=== PATIENT | female | born 1975 | race Caucasian/White ===

== ENCOUNTER → 2019-08-10 14:02 | Outpatient (BNVA) | payer BC, SELFPAY | PROVIDERS: Family Provider Nurse Practitioner Family; PCP Nurse Practitioner Family; Visit Provider Surgery | DX: K52.9 Noninfective gastroenteritis and colitis, unspecified (principal) | CPT/HCPCS: 87046 ==

== ENCOUNTER → 2019-08-11 16:32 | Outpatient (BNVA) | payer BC, SELFPAY | PROVIDERS: Family Provider Nurse Practitioner Family; PCP Nurse Practitioner Family; Visit Provider Surgery | DX: K52.9 Noninfective gastroenteritis and colitis, unspecified (principal); R10.13 Epigastric pain | CPT/HCPCS: 83630; 87177; 87209; 87493; 87505 ==

== ENCOUNTER 2019-08-22 09:31 | Outpatient (CLI) | payer BC, SELFPAY ==
--- NOTE | 2019-08-22 09:39 | NM_ITS ---
WS: [id number] NUCLEAR MEDICINE HIDA SCAN WITH GALLBLADDER EJECTION FRACTION HISTORY: EPIGASTRIC PAIN COMPARISON: Gallbladder ultrasound 07/07/2019 TECHNIQUE: The patient was intravenously injected with 7.5 mCi of TC99m Mebrofenin. Immediate imaging over the right upper quadrant was followed by 5 minute image and additional images for a total of 60 minutes. Normal uptake of radiotracer throughout the liver. Activity identified in the gallbladder at 10 minutes and well distended by 60 minutes. Activity in the proximal small bowel was seen by 20 minutes. Good washout of the radiotracer from the liver by 60 minutes. The patient then drank 8 ounces of Ensure Plus. Ejection fraction at 75 minutes was 73%. Normal GB ej ection fraction is 35-75%. Post fatty meal symptoms: None. NM/NM hepatobiliary w phar* [id number] IMPRESSION: 1. Normal HIDA scan. 2. Normal gallbladder ejection fraction.
== END 2019-08-22 09:32 | disposition home or self-care (01) ==
PROVIDERS: Family Provider Nurse Practitioner Family; PCP Nurse Practitioner Family; Visit Provider Surgery
DX: R10.13 Epigastric pain (principal)
CPT/HCPCS: 78227; A9537

== ENCOUNTER 2019-08-30 06:21 | Day surgery (SDC) | payer BC, SELFPAY ==
[2019-08-29 11:24] VITALS: BMI 37.8
[2019-08-30] VITALS (7 sets, daily range): BP systolic 100–140; BP diastolic 59–103; PULSE 52–86; RESP 16–20; TEMP 36.2–36.6; O2SAT 93–98
--- NOTE | 2019-08-30 06:53 | PM.HPUD ---
H&P update H&P Update: DATE OF SURGERY/PROCEDURE: 08/30/19 DATE H&P PERFORMED: 08/25/19 H&P UPDATE INFORMATION: H&P completed within last 30 days and No changes to prior documentation PREOP DIAGNOSIS: Chronic cholecystitis PLANNED PROCEDURE: Operation Date: 08/30/19 07:40 Proposed Procedures p Laparoscopic [place] 76534 K82.8(Not Applicable) - Remy Moss MD Full H&P Perinent History: Medical/Surgical History: Medical History (Updated 08/25/19 @ 11:00 by Remy Moss MD) Environmental and seasonal allergies (Acute) Gastritis (Acute) PCOS (polycystic ovarian syndrome) (Acute) Vitamin D deficiency (Acute) Family History: Family History (Updated 08/04/19 @ 11:22 by Serene Craft LPN) Grandmother Diabetes Mother Cancer colon Denies family history of Anesthesia complication Bleeding disorder Social History: Social History Smoking and tobacco status: never smoked Alcohol intake: never Household members: spouse Marital status: Current occupational status: employed
[2019-08-30 07:05] LABS: OR HCG Qualitative Urine Negative (Negative)
--- NOTE | 2019-08-30 07:06 | ANES.PREANE2 ---
Pre-Anesthetic Assessment Pre-Anesthetic Assessment: Height/Weight: Height 1.63 m Weight 99.79 kg Temp Pulse Resp BP Pulse Ox 97.2 F L 86 16 140/103 98 08/30/19 06:44 08/30/19 06:44 08/30/19 06:44 08/30/19 06:44 08/30/19 06:44 Preop Diagnosis: Chronic cholecystitis Proposed Procedure: Operation Date: 08/30/19 07:40 Proposed Procedures p Laparoscopic Cholecystectomy Poss Open 15034 K82.8(Not Applicable) - Remy Moss MD Last intake: Intake Last Liquid Date 08/30/19 Last Liquid Time 20:30 Last Solid Date 08/29/19 Last Solid Time 20:30 Exam: Pre-Anes Outpt Exam: alert, oriented x 3, clear to auscultation bilaterally and regular rate & rhythm Airway: Submandibular: WNL Cervical ROM: WNL MP: 1 GI: GI: GERD Comments: chronic cholecystitis Metabolic: Metabolic: Morbid obesity Anesthetic Plan: ASA status: III Anesthesia: General PFS Anesthesia PFSH: Social History Smoking and tobacco status: never smoked Alcohol intake: never Household members: spouse Marital status: Current occupational status: employed Data Anesthesia Other Labs: Laboratory Results - last 48 hr 08/30/19 07:01 Urine HCG, Qual Negative Cardiac Studies: No Data to Display
[2019-08-30] MEDS: sodium chloride 0.9% 1,000 ML 30 ML IV (07:08)
[2019-08-30] MEDS: HYDROcodone-acetaminophen 5-325 mg Tablet 1 TAB PO (09:14)
--- NOTE | 2019-08-30 09:24 | P.OP_ITS ---
Operative Report Date of procedure: August 30, 2019 Pre-op Diagnosis: Chronic cholecystitis Post-op diagnosis: same Post-op Findings: Omentum adherent to the fundus and the body of the gallbladder Procedure Done: Laparoscopic cholecystectomy Pathology: Gallbladder Surgeon: Remy Moss Anesthesia: General Estimated blood loss (mL): 10 Condition: stable Disposition: PACU Procedure: The patient was taken to the operating room and was intubated under general anesthesia. After the antibiotic had been administered, the abdomen was prepped and draped in a sterile manner. Using a #15 blade, a 1 centimeter infraumbilical curvilinear incision was made and using an open Asha technique the peritoneal cavity was entered. A 10 millimeter port was placed and 15 millimeters of pneumoperitoneum was created. A 10 millimeter, 30 degrees scope was then introduced. Three 5 millimeter ports were placed in the epigastric, midclavicular and the anterior axillary line two fingerbreadths below the costal margin on the right side under the direct visualization. Ratcheted forceps were introduced into the lateral most port and was used to retract the fundus of the gallbladder cephalad and using forceps the infundibulum of the gallbladder was retracted laterally. Using electrocautery the omentum was peeled from the fundus and the body of the gallbladder. Using L-hook cautery the peritoneum overlying the Calot's triangle was opened medially and laterally until the cystic duct and the cystic artery were skeletonized. Dissection was carried along the body of the gallbladder and after ensuring critical view of safety, 4 clips applied on the cystic duct and 3 clips applied on the anterior and posterior branch of cystic artery and cut leaving, 3 clips on the remaining p ortion of the duct and 2 clips on the remaining portion of the artery. The rest of the gallbladder was dissected off the liver using L-hook cautery. There was no bleeding or bile leaking noted from the gallbladder fossa and the clips appeared to be in place. An EndoCatch bag was introduced to remove the gallbladder. All the ports were removed under direct visualization and there was no bleeding noted from the port sites. The fascia of the umbilicus was closed using [id number] 0 Vicryl sutures and the subcutaneous tissue was approximated using 3-0 Vicryl sutures. The skin at all four ports were closed using 4-0 Monocryl and Dermabond. A total of 10 millimeters of 0.5% Marcaine was infiltrated around the port sites. The patient was stable throughout the procedure.
== END 2019-08-30 10:20 | disposition home or self-care (01) ==
PROVIDERS: Family Provider Nurse Practitioner Family; PCP Nurse Practitioner Family; Visit Provider Surgery
PROC: 0FT44ZZ Resection of Gallbladder, Percutaneous Endoscopic Approach (ICD-10-PCS; CPT 47562; principal; 2019-08-30 07:40)
DX: K81.1 Chronic cholecystitis (principal); E66.01 Morbid (severe) obesity due to excess calories; Z68.37 Body mass index [BMI] 37.0-37.9, adult; Z83.3 Family history of diabetes mellitus
CPT/HCPCS: 47562; 12345; 84703; 88304; J0690; J1885; J2001; J2405; J2704; J2710; J3010; J3490; J7030

== ENCOUNTER 2025-05-31 09:04 | Outpatient (CLI) | payer BC, SELFPAY ==
--- NOTE | 2025-05-31 09:20 | MM_ITS ---
WS: [id number] SCREENING DIGITAL BREAST TOMOSYNTHESIS MAMMOGRAM WITH CAD HISTORY: SCREENING COMPARISON: 04/17/2019 Bilateral CC and MLO with tomosynthesis and synthetic mammography submitted. Computer aided detection analyzed. Breast composition: The breasts are heterogeneously dense, which may obscure small masses. Asymmetry and increased density in the upper outer quadrant of the RIGHT breast seen best on the MLO projection. Asymmetry has progressed since 2019. There is no discrete mass or nodule. LEFT breast is negative. MM/MM scr BI tomosynthesis [id number] IMPRESSION: BI-RADS: 0 - Incomplete: Need additional imaging evaluation FOLLOW UP: Need Additional Imaging RIGHT breast: Spot compression views (CC and MLO). True ML. Ultrasound to follo w if abnormality persists.
== END 2025-05-31 09:05 | disposition home or self-care (01) ==
LOC: MOBLMAM 09:10
PROVIDERS: PCP Nurse Practitioner Family; Visit Provider Nurse Practitioner Family
DX: Z12.31 Encounter for screening mammogram for malignant neoplasm of breast (principal); R92.333 Mammographic heterogeneous density, bilateral breasts; N64.89 Other specified disorders of breast
CPT/HCPCS: 77063; 77067

== ENCOUNTER 2025-07-02 08:01 | Outpatient (CLI) | payer BC, SELFPAY ==
--- NOTE | 2025-07-02 08:12 | MM_ITS ---
WS: [id number] ADDITIONAL VIEWS RIGHT MAMMOGRAM WITH DIGITAL BREAST TOMOSYNTHESIS. RIGHT breast ultrasound, limited. HISTORY: ABNORMAL MAMMOGRAM COMPARISON: 05/31/2025, 04/17/2019 Spot compression views RIGHT breast in CC, MLO projections and true ML submitted with digital breast tomosynthesis and SM. Breast composition: The breasts are heterogeneously dense, which may obscure small masses. Asymmetry persist in the upper outer quadrant with spot compression views but no distortion. No mass identified. No suspicious grouping of calcifications. Ultrasound to follow. RIGHT breast ultrasound, limited. Ultrasound in the RIGHT upper outer quadrant demonstrates no abnormalities. MM/MM diag RT tomosynthesis [id number] IMPRESSION: BI-RADS: 2 - Benign FOLLOW UP: 1 Year Follow-up No persistent abnormality upper outer quadrant RIGHT breast. Return to annual s creening mammography.
== END 2025-07-02 08:02 | disposition home or self-care (01) ==
PROVIDERS: PCP Nurse Practitioner Family; Visit Provider Nurse Practitioner Family
DX: R92.8 Other abnormal and inconclusive findings on diagnostic imaging of breast (principal); R92.333 Mammographic heterogeneous density, bilateral breasts; N64.89 Other specified disorders of breast
CPT/HCPCS: 76642; 77061; G0279